=== PATIENT | female | born 1970 | race Caucasian/White ===

== ENCOUNTER 2021-03-18 23:20 | Emergency (ER) | payer OTHER ==
[~2021-03-18] VITALS: Ht 162.6 cm; Wt 84.4 kg
[2021-03-18] MEDS ORDERED: AMOXICILLIN/CLAVULANATE K 875 MG TAB PO STA (23:57)
[2021-03-19] MEDS ORDERED: HYDROCODONE/APAP 5MG-325MG TAB PO ONE
[2021-03-19] MEDS ORDERED: AMOXICILLIN500 MG PO (00:02)
[2021-03-19] MEDS ORDERED: PROAIR HFA INH8.5 GM INH (00:05)
[2021-03-19] MEDS ORDERED: ALBUTEROL2.5 MG/3 M INH (00:06)
[2021-03-19] MEDS ORDERED: HYDROCODON-ACE1 EA11 PO (00:07)
[2021-03-19] MEDS ORDERED: AMOXICILLIN/CLAVULANATE K 875 MG TAB ONE (00:11)
[2021-03-19] MEDS ORDERED: HYDROCODONE/APAP 5MG-325MG TAB ONE (00:12)
== END 2021-03-19 00:16 | disposition home or self-care (01) ==
LOC: FSED 23:45
DX: K08.89 Other specified disorders of teeth and supporting structures (principal); K02.9 Dental caries, unspecified; J45.909 Unspecified asthma, uncomplicated; F90.9 Attention-deficit hyperactivity disorder, unspecified type
CPT/HCPCS: 99282

== ENCOUNTER 2021-05-11 14:56 | Emergency (ER) | payer OTHER ==
[~2021-05-11] VITALS: Ht 162.6 cm; Wt 72.6 kg
[~2021-05-11 14:56] MED LIST: ALBUTEROL2.5 MG/3 M INH; AMOXICILLIN500 MG PO; HYDROCODON-ACE1 EA11 PO; PROAIR HFA INH8.5 GM INH
[2021-05-11] MEDS ORDERED: FAMOTIDINE 20 MG/2 ML VIAL IV STA (15:30)
[2021-05-11] MEDS ORDERED: SODIUM CHLORIDE 0.9% 1000ML 1,000 ML IV SCH (15:30)
[2021-05-11] MEDS ORDERED: ONDANSETRON HCL INJ 2MG/ML 2ML 2 MG/ML VIAL IV STA (15:30)
[2021-05-11] MEDS ORDERED: DICYCLOMINE HCL 20 MG/2 ML VIAL IM ONE ×2 (15:45→16:02)
[2021-05-11] MEDS ORDERED: SODIUM CHLORIDE 0.9% 1000ML 1,000 ML ONE (16:02)
[2021-05-11] MEDS ORDERED: FAMOTIDINE 20 MG/2 ML VIAL IV ONE (16:02)
[2021-05-11] MEDS ORDERED: ONDANSETRON HCL INJ 2MG/ML 2ML 2 MG/ML VIAL ONE (16:02)
[2021-05-11] MEDS ORDERED: PROMETHAZINE HC25 M1 PO (17:07)
== END 2021-05-11 17:20 | disposition home or self-care (01) ==
LOC: FSED 15:12
DX: R11.2 Nausea with vomiting, unspecified (principal); K52.9 Noninfective gastroenteritis and colitis, unspecified; J45.909 Unspecified asthma, uncomplicated; F90.9 Attention-deficit hyperactivity disorder, unspecified type
CPT/HCPCS: 80048; 80076; 81003; 85025; 99283; J0500; J2405; J7030

== ENCOUNTER 2022-08-21 22:11 | Emergency (ER) | payer SELFPAY ==
[~2022-08-21] VITALS: Ht 162.6 cm; Wt 72.6 kg
[~2022-08-21 22:11] MED LIST changes: +PROMETHAZINE HC25 M1 PO
[2022-08-22 00:42] VITALS: BP 120/80
== END 2022-08-22 00:42 | disposition home or self-care (01) ==
LOC: FSED 22:23
DX: R07.89 Other chest pain (principal); U09.9 Post COVID-19 condition, unspecified; J45.909 Unspecified asthma, uncomplicated; E78.00 Pure hypercholesterolemia, unspecified; F90.9 Attention-deficit hyperactivity disorder, unspecified type
CPT/HCPCS: 71046; 80053; 82553; 84484; 85025; 85379; 93005; 99283